=== PATIENT | female | born 1980 | race Caucasian/White ===

== ENCOUNTER 2019-10-19 10:27 | Emergency (ER) | payer MEDICAID ==
--- NOTE | 2019-10-19 10:41 | ED Physician Documentation ---
PD HPI LOWER EXT INJURY - Stated complaint Stated Complaint: R ANKLE INJ - Chief complaint Chief Complaint: Ext Problem - History obtained from History obtained from: Patient - History of Present Illness PD HPI LOW EXT INJURY LOCATION: Right, Ankle Type of injury: Twist (stepping down from her camper, missed step and twisted ankle inversion.) Where injury occurred: Home (her camper) Timing - onset: Last night, Yesterday Timing - details: Abrupt onset, Still present Worsened by: Moving, Palpating, Other (weight bearing really painful) Associated symptoms: Swelling. No: Weakness, Numbness Similar symptoms before: Has not had sx before Review of Systems Constitutional: denies: Fever, Chills Nose: denies: Rhinorrhea / runny nose, Congestion Throat: denies: Sore throat Respiratory: denies: Cough Skin: denies: Abrasion (s), Laceration (s) Neurologic: denies: Focal weakness, Numbness PD PAST MEDICAL HISTORY - Past Medical History Past Medical History: No - Present Medications Home Medications: Ambulatory Orders Medication Instructions Recorded Confirmed Hydrocodone/Acetaminophen [[place] 1 each PO Q6H PRN #12 tablet 10/19/19 5-325 Tablet] - Allergies Allergies/Adverse Reactions: Allergies Allergy/AdvReac Type Severity Reaction Status Date / Time codeine AdvReac Nausea Verified 10/19/19 10:35 PD ED PE NORMAL - Vitals Vital signs reviewed: Yes - General General: Alert and oriented X 3, No acute distress (very limping gait), Well developed/nourished - Derm Derm: Normal color, Warm and dry - Extremities Extremities: Other (right ankle with swelling and tenderness laterally with effusion. Medially tender as well. No noted gross laxity with stress testing but limited by pain. ) - Neuro Neuro: No motor deficit, No sensory deficit Results - Vitals Vitals: Oxygen O2 Source Room air - Rads (name of study) right ankle Radiology: Prelim report reviewed (small avulsion fragment distal fibula, possibly old. ), See rad report PD MEDICAL DECISION MAKING - ED course Complexity details: reviewed results, considered differential, d/w patient Departure - Departure Disposition: Home, Self Care Clinical Impression: Moderate right ankle sprain Qualifiers: Encounter type: initial encounter Qualified Code(s): S93.401A - Sprain of unspecified ligament of right ankle, initial encounter Condition: Stable Record reviewed to determine appropriate education?: Yes Instructions: ED Sprain Ankle Prescriptions: Hydrocodone/Acetaminophen [[place] 5-325 Tablet] 1 each PO Q6H PRN #12 tablet PRN Reason: Pain Comments: Wear the boot orthosis when up and around for likely 3 weeks. After 1-1/2 to 2 weeks, you could decrease to a less aggressive ankle brace until feeling fully healed. For the swelling right now, ice elevate and rest the ankle often. Crutches as needed for now partial to nonweightbearing and progress weightbearing as able. Anti-inflammatories such as naproxen or ibuprofen 2-3 times a day. Add Tylenol or hydrocodone if needed for worse pain. Follow-up with your primary care back home if not better over the next week or 2 Discharge Date/Time: 10/19/19 12:09
--- NOTE | 2019-10-19 10:54 | XRAY Report ---
PROCEDURE: Ankle 3 View RT INDICATIONS: Fall TECHNIQUE: 3 views of the ankle were acquired. COMPARISON: None FINDINGS: Bones: There is a tiny well-corticated smoothly marginated ossific density inferior to the lateral malleolus . This likely represents a remote avulsion fracture fragment. There is another tiny ossific density immediately adjacent to the medial aspect of the talus at the s ustentaculum jaimie. This is sharply marginated with indistinct cortical borders. Similarly, there is a tiny ossific density immediately inferior and almost inseparable from the inferior aspect of the med ial malleolus. These tiny ossific densities are age indeterminate, potentially acute. Soft tissues: There is soft tissue swelling about the lateral ankle with a small ankle joint effusio n. No tibiotalar joint effusion. Achilles tendon appears normal. IMPRESSION: Soft tissue swelling and ankle joint effusion are suggestive of acute injury and perhaps a fracture. There are 2 age indeterminate tiny ossific densities in the medial ankle which may be acute. CT could be considered for further evaluation. One tiny smoothly marginated and well corticated ossific density adjacent to the lateral malleolus is favored to represent remote avulsion fracture fragment. Reviewed by: Rafael Cheema MD on 10/19/2019 10:53 AM PDT Approved by: Rafael Cheema MD on 10/19/2019 10:53 AM PDT Station ID: [id number]
[2019-10-19] MEDS ORDERED: HYDROcod/ACETAM 5/325 MG TABLET PO STA (11:17)
[2019-10-19] MEDS ORDERED: NAPROXEN 250 MG TABLET PO STA (11:17)
[2019-10-19 12:02] VITALS: BP 120/85
== END 2019-10-19 12:09 | disposition home or self-care (01) ==
LOC: ED 10:27
DX: S93.401A Sprain of unspecified ligament of right ankle, initial encounter (principal); X50.1XXA Overexertion from prolonged static or awkward postures, initial encounter; Y93.89 Activity, other specified; Y92.89 Other specified places as the place of occurrence of the external cause
CPT/HCPCS: 73610; 99283; A9270